=== PATIENT | female | born 1960 | race Caucasian/White ===

== ENCOUNTER 2022-04-18 19:34 | Observation (INO) ==
--- NOTE | 2022-04-18 19:41 | Emergency Department Note ---
Lower Extremity Injury HPI General Chief Complaint: Extremity Injury, Lower Stated Complaint: suspects rt lowr leg Fx Time Seen by Provider: 04/18/22 19:38 Source: patient and EMS Mode of arrival: EMS Limitations: no limitations History of Present Illness HPI Narrative: Narrative: Patient presents ED via EMS with complaints of right ankle pain that occurred shortly prior to arrival. Pain is currently rated 4/10. She received 100 of fentanyl IV in route with EMS. Patient reports that she was stepping down the stairs from her trailer and she slipped twisting her ankle. She denies head trauma, loss of consciousness, knee pain because of sensation of the right lower extremity, loss of motor function right lower extremity. She does report swelling. Patient denies any other alleviating or aggravating factors. Related Data Home Medications Medication Instructions Recorded Confirmed losartan 25 mg tablet 25 mg PO QDAY 06/13/18 02/13/21 Previous Rx's Medication Instructions Recorded atenolol 50 mg tablet 50 mg PO BID #180 tabs 10/18/17 semaglutide 0.25 mg or 0.5 mg (2 0.5 mg (0.4 mL) subcut QWEEK #4.5 10/18/17 mg/1.5 mL) subcutaneous pen mL injector (nChannel) blood-glucose meter (Contour Meter #1 ea 10/19/17 kit) sitagliptin phosphate 100 mg 100 mg PO QPM #90 tabs 02/21/18 tablet (Januvia) ezetimibe 10 mg-simvastatin 40 mg 1 tab PO QPM #90 tabs 03/21/18 tablet (Vytorin) fluoxetine 20 mg capsule 20 mg PO QDAY #60 caps 03/21/18 aspirin 81 mg tablet,delayed 81 mg PO QDAY #90 tabs 04/08/18 release (Adult Aspirin Regimen) pramipexole 0.25 mg tablet 0.75 mg PO QPM #270 tabs 04/08/18 albuterol sulfate 90 mcg/actuation 2 puff inhalation Q6H PRN cough, 04/15/18 aerosol inhaler (ProAir HFA) shortness of breath, wheezing #8.5 grams omeprazole 20 mg capsule,delayed 40 mg PO QDAY #180 caps 04/15/18 release qjeehauebfmzxle-osufgatfaotnonf-ID 10 ml PO BID PRN cold symptoms 06/13/18 2 mg-30 mg-10 mg/5 mL oral syrup #120 mL (Bromfed DM) fluticasone propionate 50 2 spray intranasal QDAY #16 grams 06/13/18 mcg/actuation nasal spray,suspension (Flonase Allergy Relief) benzonatate 100 mg capsule 200 mg PO TID PRN cough #30 caps 06/17/18 (Tessalon Anthony) promethazine 6.25 mg-codeine 10 See Rx Instructions PO .COMPLEX 06/17/18 mg/5 mL syrup PRN cough #120 mL Allergies Allergy/AdvReac Type Severity Reaction Status Date / Time KONG Inhibitors Allergy Unknown Hives Verified 02/13/21 09:49 Amoxicillin Allergy Unknown Rash Verified 02/13/21 09:49 exenatide [From Byetta] Allergy Unknown Unknown Verified 02/13/21 09:49 liraglutide [From Victoza] Allergy Unknown Unknown Verified 02/13/21 09:49 morphine Allergy Unknown Red streaks Verified 02/13/21 09:49 Penicillins Allergy Unknown Rash Verified 02/13/21 09:49 Sulfa (Sulfonamide Allergy Unknown Abdominal Verified 02/13/21 09:49 Antibiotics) Pain tetracycline [Tetracycline] Allergy Unknown Hives Verified 02/13/21 09:49 erythromycin Allergy Unknown Unknown Uncoded 02/13/21 09:49 Review of Systems ROS ROS Narrative: Narrative: All systems ED: reviewed and negative except as stated. PFSH Narrative Patient History Narrative: Narrative: Medical/Surgical/Family History All Active Problems (Updated 04/18/22 @ 22:00 by [place] DO) Ankle fracture (Acute) Maxillary sinusitis (Chronic) Labial lesion (Chronic) BRBPR (bright red blood per rectum) (Chronic) Upper respiratory infection (Chronic) Dysphagia (Chronic) High triglycerides (Chronic) Abdominal pain (Chronic ~08/2011) Bloody stools (Chronic ~08/2011) Diarrhea (Chronic ~08/2011) Ischemic colitis (Chronic ~09/2005) RUQ pain (Chronic) Gastritis (Chronic) Nausea (Chronic) Insomnia (Chronic) History of bronchitis (Chronic) Hyperlipemia (Chronic) Daytime somnolence (Chronic) DM w/o complication type II, uncontrolled (Chronic) Schatzki's ring (Chronic) Mixed hyperlipidemia (Chronic) Major depressive disorder in full remission (Chronic) Myalgia and myositis, unspecified (Chronic) Vitamin D deficiency (Chronic) Morbid obesity (Chronic) Restless leg (Chronic) Hypertension, essential (Chronic) DMII (diabetes mellitus, type 2) (Chronic ~2007) Depression (Chronic ~2012) Anxiety (Chronic ~2012) Acid reflux (Chronic) Medical History Abdominal pain (~08/2011) Acid reflux has had previous EGD; has previously been on omeprazole (symptoms not completely controlled on this) Anxiety (~2012) social anxiety Bloody stools (~08/2011) BRBPR (bright red blood per rectum) Daytime somnolence Depression (~2012) Diarrhea (~08/2011) DM w/o complication type II, uncontrolled DMII (diabetes mellitus, type 2) (~2007) does not tolerate metformin; on combination of Januvia and Ozempic injections Dysmetabolic syndrome Dysphagia Elevated blood pressure reading without diagnosis of hypertension Gallbladder problem Removed Gastritis High triglycerides History of bronchitis Hx of medication noncompliance Hyperlipemia Hypertension, essential takes medication for control, previous hives from ACEI Impaired fasting glucose Insomnia Ischemic colitis (~09/2005) Labial lesion right labial ulceration Major depressive disorder in full remission Maxillary sinusitis Mixed hyperlipidemia Morbid obesity Myalgia and myositis, unspecified Nausea Other recurrent depressive disorders Restless leg takes Mirapex for this, not controlled recently RUQ pain Schatzki's ring Vitamin D deficiency takes supplementation for this Surgical History H/O colonoscopy 10/17/2005; 11/24/2010; 02/10/2021 H/O: hysterectomy Ovaries spared,1998 History of cholecystectomy History of cholecystectomy 2010 History of esophagogastroduodenoscopy (EGD) 09/09/2009; 12/13/2009; 04/28/2010; 11/19/2010; 08/17/2012 ; 02/10/2021 History of mandibular surgery (~2014) Dr. Hernandez; bilateral lower jaw screws/plates History of tonsillectomy and adenoidectomy Family History Mother Arthritis Diabetes Stroke multiple Valvular heart disease Gout Father , 2016, 85 years of age, CHF Bladder cancer Dementia Diabetes Hypertension, essential Heart attack Congestive heart failure Alzheimer disease Colon polyps Brother Diabetes Hypertension, essential Migraines Depression Seasonal allergies Sister Seasonal allergies Social History Alcohol Intake Frequency: does not drink Substance Use: does not use Exam Narrative Narrative: Narrative: General Limitations: no limitations General appearance: Absent in distress Head Head: Present atraumatic and normocephalic Neck Neck: Present normal inspection and full ROM; Absent tenderness Chest Chest: Present normal inspection; Absent tenderness Respiratory Respiratory: Present normal lung sounds bilaterally; Absent respiratory distress Cardiovascular Cardiovascular: Present regular rate and normal rhythm Adbominal Abdominal: Present soft; Absent tenderness Extremities Extremities: Present normal capillary refill Expanded Lower Extremity Knee: Present normal inspection; Absent tenderness Lower leg: Present normal inspection; Absent tenderness Ankle: Present tenderness, swelling and ecchymosis Back Back: Absent L-S tenderness Neurological Neurological: Present alert and oriented X3 Psychiatric Psychiatric: Present normal affect and normal mood Skin Skin: Present warm (WNL) and intact Course Course Course Narrative: Patient was evaluated for right ankle pain status post fall. X-rays were obtained and showed that patient had fractured ankle. Case discussed orthopedic surgeon who recommend surgery. He requested patient be admitted to the hospital service. N.p.o. after midnight. Pain management and patient placed in a Aircast. Plan of care was discussed with patient expressed verbal understanding and agreement. Consultations Consultation #1: Case discussed with on-call orthopedic surgeon, Dr. Strickland, recommends the patient be admitted to the hospital service for surgical correction tomorrow. He placed that patient be placed in Aircast. Time: 20:01 Consultation #2: Case discussed with hospitalist who has agreed to admit the patient. Time: 20:50 Vital Signs Vital signs: Vital Signs Temperature 97.4 F 04/18/22 19:35 Pulse Rate 71 04/18/22 19:35 Respiratory Rate 15 04/18/22 19:35 Pulse Oximetry (%) 96 04/18/22 19:35 Oxygen Delivery Method 04/18/22 19:35 Temperature 97.4 F 04/18/22 19:35 Pulse Rate 70 04/18/22 20:46 Respiratory Rate 15 04/18/22 19:35 Blood Pressure 127/70 04/18/22 20:46 Pulse Oximetry (%) 94 04/18/22 20:46 Oxygen Delivery Method 04/18/22 19:35 MDM MDM Narrative Medical decision making narrative: Narrative: Differential Diagnosis Differential Diagnosis: Ankle fracture, ankle sprain Medical Records Medical records reviewed: Yes I reviewed the patient's medical records. Radiology Data Radiology results reviewed: Yes I reviewed the patient's radiology results. Radiology results narrative: Right ankle x-ray, ankle fracture identified Core Measures AMI Core Measures Followed: Yes Discharge Plan Patient/Caregiver Discharge Instructions Pt seen by STILE RIPSAW OPERATOR/PA only: No Clinical Impression: Ankle fracture Patient Disposition: Xfer As Outpt/Obs ([facility]) Condition: Good Follow up with: Yaritza Garcia MD [Primary Care Provider] - Prescriptions: No Action sitagliptin phosphate [Januvia] 100 mg tablet 100 mg PO QPM Qty: 90 0RF ezetimibe-simvastatin [Vytorin 10-40] 10-40 mg tablet 1 tab PO QPM Qty: 90 2RF fluoxetine 20 mg capsule 20 mg PO QDAY Qty: 60 5RF albuterol sulfate [ProAir HFA] 90 mcg/actuation HFA aerosol inhaler 2 puff INHALATION Q6H PRN (Reason: cough, shortness of breath, wheezing) Qty: 8.5 5RF Rx Instructions: administer with spacer omeprazole 20 mg capsule,delayed release(DR/EC) 40 mg PO QDAY Qty: 180 5RF atenolol 50 mg tablet 50 mg PO BID Qty: 180 4RF semaglutide [Ozempic] 0.25 mg/0.2 mL (2 mg/1.5 mL) pen injector 0.5 mg SUB-Q QWEEK Qty: 4.5 4RF Rx Instructions: inject into upper arm, anterior thigh or abdomen; rotate sites (DME) blood-glucose meter [Contour Meter] kit See Dose Instructions .ROUTE .MEDSUPPLY Qty: 1 0RF Dose Instruction: As directed Rx Instructions: As directed aspirin [Adult Aspirin Regimen] 81 mg tablet,delayed release (DR/EC) 81 mg PO QDAY Qty: 90 4RF pramipexole 0.25 mg tablet 0.75 mg PO QPM Qty: 270 4RF losartan 25 mg tablet 25 mg PO QDAY fluticasone propionate [Flonase Allergy Relief] 50 mcg/actuation spray,suspension 2 spray INTRANASAL QDAY Qty: 16 0RF Rx Instructions: administer into each nostril ojfbwvtqimuzhmr-[id number] [Bromfed DM] 2-30-10 mg/5 mL syrup 10 ml PO BID PRN (Reason: cold symptoms) Qty: 120 0RF benzonatate [Tessalon Perles] 100 mg capsule 200 mg PO TID PRN (Reason: cough) Qty: 30 0RF promethazine-codeine 6.25-10 mg/5 mL syrup See Rx Instructions PO .COMPLEX PRN (Reason: cough) Qty: 120 0RF Dose Instruction: 1-2 tsp PO QHS PRN; Rx Instructions: 1-2 tsp PO QHS PRN;
[2022-04-18] MEDS ORDERED: diphenhydrAMINE 50 MG/ML VIAL IV ONE (20:14)
[2022-04-18] MEDS ORDERED: morphine 2 MG/ML VIAL IV ONE (20:14)
[2022-04-18] MEDS ORDERED: ALBUTEROL SULFATE 60 PUFF INHALER INH PRN (21:05)
[2022-04-18] MEDS ORDERED: MAGNESIUM HYDROXIDE 30 ML ORAL.SUSP PO PRN (21:08)
[2022-04-18] MEDS ORDERED: PROMETHAZINE 25 MG/ML VIAL IV PRN (21:08)
[2022-04-18] MEDS ORDERED: oxyCODONE HCL 5 MG TABLET PO PRN (21:08)
[2022-04-18] MEDS ORDERED: ONDANSETRON 4 MG ODT TABLET SL PRN (21:08)
[2022-04-18] MEDS ORDERED: ZOLPIDEM 5 MG TABLET PO PRN (21:08)
[2022-04-18] MEDS ORDERED: ONDANSETRON 4 MG/2 ML VIAL IV PRN (21:08)
[2022-04-18] MEDS ORDERED: ALBUTEROL SULFATE 2.5 MG/3 ML NEBULIZER NEB PRN (21:08)
[2022-04-18] MEDS ORDERED: ENOXAPARIN 40 MG/0.4 ML SYRINGE SQ ONE (21:10)
[2022-04-18] MEDS ORDERED: DEXTROSE 50% 50 ML VIAL IV PRN (21:13)
[2022-04-18] MEDS ORDERED: DEXTROSE 31 GM ORAL.SUSP PO PRN (21:13)
--- NOTE | 2022-04-18 21:17 | Internal Med History&Physical ---
HPI History of Present Illness Patient information: Note initiated : 04/18/22 at 9:15 pm Patient: Gayle Gomez a 61 y/o F admitted on for fall and acute traumatic unstable right Ankle fracure Chief Complaint: Fall with right ankle pain and fracture History of present illness: Ms. Gomez is a 61 year old female with past medical history significant for diabetes, hyperlipidemia, hypertension and morbid obesity with BMI 50 presented to emergency room with complaint of right ankle pain. Patient had a mechanical fall due to IC for. She felt down without injuring any other part of her body. She had severe pain in the right ankle and bruising. In the emergency room x- ray right ankle showed acute unstable right ankle/fibula fracture. Dr. Strickland orthopedic surgeon were consulted and he plan to perform ORIF tomorrow morning because patient's fracture is unstable. Patient did not lose consciousness. She has no other injury or pain. She complains of 5/10 pain in the right ankle. She denies nausea vomiting chest pain shortness of breath dizziness, fever, chills, syncope, abdominal pain. Review of Systems All systems: reviewed and no additional remarkable complaints except as stated Review of systems: Except as documented all systems reviewed and negative PFSH PFSH All Active Problems Maxillary sinusitis (Chronic) Labial lesion (Chronic) BRBPR (bright red blood per rectum) (Chronic) Upper respiratory infection (Chronic) Dysphagia (Chronic) High triglycerides (Chronic) Abdominal pain (Chronic ~08/2011) Bloody stools (Chronic ~08/2011) Diarrhea (Chronic ~08/2011) Ischemic colitis (Chronic ~09/2005) RUQ pain (Chronic) Gastritis (Chronic) Nausea (Chronic) Insomnia (Chronic) History of bronchitis (Chronic) Hyperlipemia (Chronic) Daytime somnolence (Chronic) DM w/o complication type II, uncontrolled (Chronic) Schatzki's ring (Chronic) Mixed hyperlipidemia (Chronic) Major depressive disorder in full remission (Chronic) Myalgia and myositis, unspecified (Chronic) Vitamin D deficiency (Chronic) Morbid obesity (Chronic) Restless leg (Chronic) Hypertension, essential (Chronic) DMII (diabetes mellitus, type 2) (Chronic ~2007) Depression (Chronic ~2012) Anxiety (Chronic ~2012) Acid reflux (Chronic) Medical History Abdominal pain (~08/2011) Acid reflux has had previous EGD; has previously been on omeprazole (symptoms not completely controlled on this) Anxiety (~2012) social anxiety Bloody stools (~08/2011) BRBPR (bright red blood per rectum) Daytime somnolence Depression (~2012) Diarrhea (~08/2011) DM w/o complication type II, uncontrolled DMII (diabetes mellitus, type 2) (~2007) does not tolerate metformin; on combination of Januvia and Ozempic injections Dysmetabolic syndrome Dysphagia Elevated blood pressure reading without diagnosis of hypertension Gallbladder problem Removed Gastritis High triglycerides History of bronchitis Hx of medication noncompliance Hyperlipemia Hypertension, essential takes medication for control, previous hives from ACEI Impaired fasting glucose Insomnia Ischemic colitis (~09/2005) Labial lesion right labial ulceration Major depressive disorder in full remission Maxillary sinusitis Mixed hyperlipidemia Morbid obesity Myalgia and myositis, unspecified Nausea Other recurrent depressive disorders Restless leg takes Mirapex for this, not controlled recently RUQ pain Schatzki's ring Vitamin D deficiency takes supplementation for this Surgical History H/O colonoscopy 10/17/2005; 11/24/2010; 02/10/2021 H/O: hysterectomy Ovaries spared,1998 History of cholecystectomy History of cholecystectomy 2010 History of esophagogastroduodenoscopy (EGD) 09/09/2009; 12/13/2009; 04/28/2010; 11/19/2010; 08/17/2012 ; 02/10/2021 History of mandibular surgery (~2014) Dr. 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[employer] pets and animals: Yes pets and animals: dog(s) sexually active: No well-balanced diet: rarely or never physical activity: none smoking status: Never smoker alcohol intake frequency: does not drink substance use type: does not use santana/zoroastrianism: None seatbelt use: always working smoke detector in home: Yes victim of physical abuse: No victim of emotional abuse: No victim of sexual abuse: No MEDS/ALLERGIES Home Medications and Allergies Home Medications Medication Instructions Recorded Confirmed Type atenolol 50 mg tablet 50 mg PO BID #180 tabs 10/18/17 02/13/21 Rx semaglutide 0.25 mg or 0.5 mg (2 0.5 mg (0.4 mL) subcut QWEEK #4.5 10/18/17 02/13/21 Rx mg/1.5 mL) subcutaneous pen mL injector (WeVue) blood-glucose meter (Contour Meter #1 ea 10/19/17 02/13/21 Rx kit) sitagliptin phosphate 100 mg 100 mg PO QPM #90 tabs 02/21/18 02/13/21 Rx tablet (Januvia) ezetimibe 10 mg-simvastatin 40 mg 1 tab PO QPM #90 tabs 03/21/18 02/13/21 Rx tablet (Vytorin) fluoxetine 20 mg capsule 20 mg PO QDAY #60 caps 03/21/18 02/13/21 Rx aspirin 81 mg tablet,delayed 81 mg PO QDAY #90 tabs 04/08/18 02/13/21 Rx release (Adult Aspirin Regimen) pramipexole 0.25 mg tablet 0.75 mg PO QPM #270 tabs 04/08/18 02/13/21 Rx albuterol sulfate 90 mcg/actuation 2 puff inhalation Q6H PRN cough, 04/15/18 02/13/21 Rx aerosol inhaler (ProAir HFA) shortness of breath, wheezing #8.5 grams omeprazole 20 mg capsule,delayed 40 mg PO QDAY #180 caps 04/15/18 02/13/21 Rx release hbyeasobopfumom-rvybjypvputqfpv-OL 10 ml PO BID PRN cold symptoms 06/13/18 02/13/21 Rx 2 mg-30 mg-10 mg/5 mL oral syrup #120 mL (Bromfed DM) fluticasone propionate 50 2 spray intranasal QDAY #16 grams 06/13/18 02/13/21 Rx mcg/actuation nasal spray,suspension (Flonase Allergy Relief) losartan 25 mg tablet 25 mg PO QDAY 06/13/18 02/13/21 History benzonatate 100 mg capsule 200 mg PO TID PRN cough #30 caps 06/17/18 02/13/21 Rx (Tesshay Cruz) promethazine 6.25 mg-codeine 10 See Rx Instructions PO .COMPLEX 06/17/18 02/13/21 Rx mg/5 mL syrup PRN cough #120 mL Allergies Allergy/AdvReac Type Severity Reaction Status Date / Time KONG Inhibitors Allergy Unknown Hives Verified 02/13/21 09:49 Amoxicillin Allergy Unknown Rash Verified 02/13/21 09:49 exenatide [From Byetta] Allergy Unknown Unknown Verified 02/13/21 09:49 liraglutide [From Victoza] Allergy Unknown Unknown Verified 02/13/21 09:49 morphine Allergy Unknown Red streaks Verified 02/13/21 09:49 Penicillins Allergy Unknown Rash Verified 02/13/21 09:49 Sulfa (Sulfonamide Allergy Unknown Abdominal Verified 02/13/21 09:49 Antibiotics) Pain tetracycline [Tetracycline] Allergy Unknown Hives Verified 02/13/21 09:49 erythromycin Allergy Unknown Unknown Uncoded 02/13/21 09:49 EXAM Constitutional Vitals: Temp Pulse Resp BP Pulse Ox O2 Del Method 97.4 F 70 15 127/70 94 04/18/22 19:35 04/18/22 20:46 04/18/22 19:35 04/18/22 20:46 04/18/22 20:46 04/18/22 19:35 General: Well-developed, malnourished morbidly obese pleasant female with BMI 50 in no distress HEENT: Atraumatic, normocephalic.PERRLA, moist mucous membrane. Anicteric sclera Chest: No point tenderness.No point tenderness. Lungs: Clear to auscultation bilaterally. No rhonchi rales or crackles. No wheezing. No use of accessory muscle respiration. Cardiovascular: Regular rate and rhythm. S1 + S2, no murmur gallop rub. No peripheral edema. No JVD Extremities: Bruise swelling right ankle with small ulcer and dried blood. Decreased range of motion due to severe pain. Left lower extremity normal GI: Abdomen soft, nontender, positive bowel sounds. No hepatosplenomegaly. No rebound tenderness. No CVA tenderness. Dai sign is negative : No Jacobo catheter. No bladder distention BOARD TURNER: Awake alert oriented x3. Cranial nerves II through XII 12 grossly intact. Motor, sensory intact. DTR 2+ upper lower extremity: Symmetric Skin:Dry. No rash. Lymph: No lymphadenopathy Psychiatric: Normal mood and affect DATA Impressions Impressions: X-ray right ankle: Self interpretation. Acute right fibula fracture, displaced A/P Narrative A/P Narrative: 61 years old pleasant female with diabetes, hypertension, hyperlipidemia, no known history of heart disease and morbid obesity with BMI 50 admitted with following problem list: #Acute traumatic right ankle/fibula fracture. Displaced and unstable -Currently on Aircast. -Pain control. -Dr. Strickland to perform ORIF in the morning. #Preop risk stratification -Revised cardiac risk index is one-point with 6% 30-day risk of , [place] or cardiac arrest. -Patient has no chest pain, shortness of breath, PND, orthopnea. No sign or symptom of acute coronary syndrome, unstable angina, decompensated heart failure, stroke. -Check EKG and if there is no acute finding I recommend to proceed with surgery with no further testing # DM II -Hold oral hypoglycemic agents since patient will be NPO. Sliding scale insulin for now # Elevated Lactic Acid. - No Sepsis. Repeat in am. # HTN - Resume home Atenolol # HLP - Cont home Statin #Restless leg syndrome - Cont home Mirapex #Morbid obesity with BMI 50 DVT PPX: Lovenox 40mg x1 now. Postop due to patient's morbid obesity consider aspirin 325 mg daily or twice daily. Will discuss with orthopedic surgeon Code Status : Full code Disposition: Observation Plan of care discussed with patient and family member as well as RN Time Spent With Patient Time: Total time spent is greater than 50% in coordination of care (as documented) at patient's floor/unit and/or counseling patient:
[2022-04-18] MEDS: HYDROmorphone 1 MG/ML SYRINGE IV PRN (23:05)
[2022-04-18] MEDS: ACETAMINOPHEN 325 MG TABLET PO PRN (23:20)
[2022-04-18] MEDS ORDERED: oxyCODONE HCL 5 MG TABLET PO ONE (23:26)
[2022-04-19] MEDS: 0.9 % SODIUM CHLORIDE 10 ML SYRINGE IV SCH ×5 (01:01→22:48)
[2022-04-19] MEDS: LACTATED RINGERS 1,000 ML IV SCH ×3 (01:01→17:19)
[2022-04-19] MEDS: HYDROmorphone 1 MG/ML SYRINGE IV PRN ×7 (01:02→21:23)
--- NOTE | 2022-04-19 03:17 | XRay Report ---
CLINICAL INFORMATION: Trauma COMPARISON: None. FINDINGS: A spiral fracture of the distal fibula diaphysis extends to the fused epiphyseal plate. The proximal fragment is displaced 6 mm anteriorly and 3 mm medially. Marked widening medial ankle mortise is compatible with deltoid ligament disruption. Moderate effusion noted. Diffuse soft tissue swelling noted. IMPRESSION: Mildly displaced spiral fracture distal fibular diaphysis with extension to the epiphyseal plate. (Dyer B) Marked widening of the medial ankle mortise compatible deltoid ligament disruption. Interpreted and Authenticated by: Trino Thorpe 04/19/22
[2022-04-19 08:08] LABS: Blood Urea Nitrogen 13 mg/dL (6-20); Calcium 8.4 mg/dL (8.6-10.4); Carbon Dioxide 24 mmol/L (22-30); Chloride 103 mmol/L (96-108); Glomerular Filtration Rate 80; Glucose 126 mg/dL (70-105)
[2022-04-19] MEDS: INSULIN LISPRO 1 UNIT/0.01 ML UNIT SQ SCH ×4 (08:23→20:34)
[2022-04-19] MEDS ORDERED: LOSARTAN 25 MG TABLET PO SCH (09:00)
[2022-04-19] MEDS: ATENOLOL 50 MG TABLET PO SCH ×2 (09:50→20:24)
[2022-04-19] MEDS: FLUTICASONE PROPIONATE SPRAY.NAS NS SCH (09:51)
[2022-04-19] MEDS: OMEPRAZOLE 20 MG CAPSULE PO SCH (09:51)
[2022-04-19] MEDS: DOCUSATE SODIUM 100 MG CAPSULE PO SCH ×2 (09:51→20:23)
[2022-04-19] MEDS: FLUoxetine HCL 20 MG CAPSULE PO SCH (09:51)
[2022-04-19] MEDS: oxyCODONE HCL 5 MG TABLET PO PRN ×3 (12:17→21:44)
[2022-04-19] MEDS ORDERED: ceFAZolin 3 GM in DEXTROSE 5% IN WATER 50 ML IV SCH (13:15)
[2022-04-19] MEDS ORDERED: ONDANSETRON 4 MG/2 ML VIAL IV PRN ×2 (14:01→14:45)
[2022-04-19] MEDS ORDERED: HYDROcodone/APAP 10/325MG TABLET PO PRN (14:01)
[2022-04-19] MEDS ORDERED: TRANEXAMIC ACID 1,000 MG/10 ML VIAL IV ONE (14:01)
--- NOTE | 2022-04-19 14:13 | Brief Operative Note ---
Brief Operative Note Date of procedure: 04/19/22 Pre-op diagnosis: right ankle fx Post-op diagnosis: same Procedure: right ankle orif with syndesmosis screwss Grafts/Implants: Yes Anesthesia: GETA Findings: above Complications: none Surgeon: Speedy Polk Burlapper: Fritz Barba Estimated blood loss (cc): 20 Tourniquet Time (Minutes): 40 Specimens Removed/Pathology: none sent Condition: stable Disposition: PACU
[2022-04-19] MEDS ORDERED: DEXAMETHASONE 10 MG/ML VIAL ONE (14:15)
[2022-04-19] MEDS ORDERED: MAGNESIUM SULFATE 4 GM/100 ML BAG IV ONE (14:15)
[2022-04-19] MEDS ORDERED: fentaNYL 100 MCG/2 ML VIAL IV ONE (14:15)
[2022-04-19] MEDS ORDERED: ONDANSETRON 4 MG/2 ML VIAL ONE (14:15)
[2022-04-19] MEDS ORDERED: PROPOFOL 200 MG/20 ML VIAL IV ONE (14:15)
[2022-04-19] MEDS ORDERED: KETAMINE 50 MG/ML Syringe (ANEST) IV ONE (14:15)
[2022-04-19] MEDS ORDERED: LIDOCAINE HCL/PF 100 MG/5 ML SYRINGE IV ONE (14:15)
[2022-04-19] MEDS ORDERED: diphenhydrAMINE 50 MG/ML VIAL IV PRN (14:45)
[2022-04-19] MEDS ORDERED: NALOXONE HCL 0.4 MG/ML VIAL IV PRN (14:45)
[2022-04-19] MEDS ORDERED: LACTATED RINGERS 1,000 ML IV SCH (14:45)
[2022-04-19] MEDS ORDERED: LACTATED RINGERS 250 ML IV PRN (14:45)
[2022-04-19] MEDS ORDERED: KETOROLAC 30 MG/ML VIAL IV PRN ×2 (14:45→21:32)
[2022-04-19] MEDS ORDERED: IPRATROPIUM/ALBUTEROL 3 ML AMPUL.NEB NEB PRN (14:45)
[2022-04-19] MEDS ORDERED: PROMETHAZINE 25 MG/ML VIAL IV PRN (14:45)
[2022-04-19] MEDS ORDERED: ACETAMINOPHEN 1,000 MG/100 ML BAG IV ONE (14:45)
[2022-04-19] MEDS ORDERED: MEPERIDINE 25 MG/ML VIAL IV PRN (14:45)
[2022-04-19] MEDS ORDERED: DIAZEPAM 10 MG/2 ML SYRINGE IV ONE (15:25)
[2022-04-19] MEDS: fentaNYL 100 MCG/2 ML VIAL IV PRN ×3 (15:28→15:58)
[2022-04-19] MEDS: rOPINIRole 1 MG TABLET PO SCH ×2 (17:15→20:25)
--- NOTE | 2022-04-19 18:01 | XRay Report ---
CLINICAL INFORMATION: Follow-up Dyer B fracture and deltoid ligament disruption COMPARISON: Preoperative films 04/18/2022 FINDINGS: The Dyer B spiral fracture distal fibula has been reduced to anatomic alignment and transfixed by lateral plate and screws. Two screws extend through the syndesmosis into the tibia. The ankle mortise now appears congruent. Small nondisplaced avulsion fracture through the posterior cortex of the posterior malleolus noted. Diffuse soft tissue swelling appreciated. IMPRESSION: ORIF Dyer B spiral fracture distal fibula now anatomically aligned Interpreted and Authenticated by: Trino Thorpe 04/19/22
[2022-04-19 20:21] LABS: Basophils # (Auto) 0.01 K/mcL (0.00-0.30); Basophils % (Auto) 0.1 % (0.0-2.0); Eosinophils # (Auto) 0 K/mcL (0.00-0.70); Eosinophils % (Auto) 0 % (0.0-7.0); Hematocrit 40.7 % (34.1-44.9); Hemoglobin 12.4 g/dL (11.2-15.7); Lymphocytes % (Auto) 7.7 % (15.5-49.0); Mean Cell Volume 90.4 fL (80.0-100.0); Mean Corpuscular HGB Conc 30.5 g/dL (31.0-36.0); Mean Platelet Volume 10.2 fL (8.8-12.5); Monocytes # (Auto) 0.12 K/mcL (0.10-0.90); Monocytes % (Auto) 1.3 % (1.0-12.0); Neutrophils % (Auto) 90.5 % (38.0-78.0); Platelet Count 217 K/mcL (140-440); Red Cell Distribution Width 14.8 % (11.5-14.5); WBC 9.1 K/mcL (4.5-11.0)
[2022-04-19] MEDS: VENLAFAXINE 75 MG TABLET PO SCH (20:24)
[2022-04-19] MEDS ORDERED: SIMVASTATIN 40 MG TABLET PO SCH (21:00)
[2022-04-19] MEDS ORDERED: PRAMIPEXOLE 0.25 MG TABLET PO SCH (21:00)
[2022-04-19] MEDS ORDERED: EZETIMIBE 10 MG TABLET PO SCH (21:00)
[2022-04-19] MEDS ORDERED: SENNOSIDES 1 TABLET PO SCH (21:00)
[2022-04-19] MEDS ORDERED: KETOROLAC 30 MG/ML VIAL ONE (21:38)
--- NOTE | 2022-04-19 22:04 | Internal Med Progress Note ---
SUBJECTIVE Subjective Patient information: Note initiated : 04/19/22 at 9:58 pm Patient: Gayle Gomez 61 y/o F admitted on 04/18/22 for suspects rt lowr leg Fx. Chief Complaint: Fall with right ankle fracture Interval history: Patient is a status post ORIF today by Dr. Strickland. She is complaining of pain in the right ankle 80/10 and crying. No nausea vomiting chest pain shortness of breath orthopnea Pertinent ROS: Except as documented all systems reviewed and negative Constitutional Vitals: Vital Signs Temp Pulse Resp BP Pulse Ox O2 Del Method O2 Flow Rate 98.7 F 64 14 126/76 97 2.5 04/19/22 16:16 04/19/22 18:31 04/19/22 18:31 04/19/22 18:31 04/19/22 18:31 04/19/22 18:31 04/19/22 18:31 Period Temp Pulse Resp BP Sys/Webb Pulse Ox O2 Del Method O2 Flow Rate Last 24 Hr 97.5 F-98.7 F 60-80 12-21 90-133/57-83 92-100 Nasal Cannula- Simple Mask 1-6 Intake and Output 04/19/22 04/19/22 04/20/22 11:59 19:59 03:59 Intake Total 2250 Output Total 550 6 Balance -550 2244 Intake & Output: Intake & Output 04/19/22 04/19/22 04/20/22 11:59 19:59 03:59 Intake Total 2250 Output Total 550 6 Balance -550 2244 Intake: IV 1150 Lactated Ringers 1,000 ml @ 84 1000 mls/hr IV .[id number] EZEQUIEL Rx#: [id number] Ancef 3 gm In Dextrose 5% in 50 Water 50 ml @ 100 mls/hr IV PREOP EZEQUIEL Rx#:[id number] IV - Manual Only 1100 Output: Void Amount 550 # of times incontinent of urine 1 Estimated Blood Loss 5 Other: Urine Appearance Clear Clear Straight Clear Urine Color Yellow Yellow Straight Yellow general: Awake alert oriented x3. In obvious pain. Patient is crying HEENT: PERRLA, moist mucous membrane. Anicteric sclera Lungs: Clear to auscultation bilaterally. No crackles rhonchi or rales. Cardiovascular: Regular rate and rhythm. S1 + S2, no murmur gallop rub. No JVD GI: Abdomen soft, nontender, positive bowel sounds. No hepatosplenomegaly. No rebound tenderness. No CVA tenderness Extremities: Status post ORIF right ankle. In cast. 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 Cranial nerves II through XII 12 grossly intact. Psychiatric: Normal mood and affect OBJ DATA Labs CBC & Chem 7: 04/19/22 19:37 04/19/22 05:56 Labs: Abnormal Lab Results 04/19/22 04/19/22 19:37 05:56 MCHC 30.5 L RDW 14.8 H Neut % (Auto) 90.5 H Lymph % (Auto) 7.7 L Lymph # (Auto) 0.70 L Absolute Neutrophils 8.19 H Glucose 126 H Calcium 8.4 L Meds: Medications Acetaminophen (Acetaminophen 325 Mg Tablet) 650 mg PO Q6HP PRN; Protocol PRN Reason: Per Pain Protocol/Fever > 101 Last Admin: 04/18/22 23:20 Dose: 650 mg Hydrocodone Bitart/Acetaminophen (Hydrocodone/Apap 10/325mg Tablet) 1 - 2 tab PO Q4HP PRN; Protocol PRN Reason: Per Pain Protocol Albuterol Sulfate (Albuterol Sulfate 60 Puff Inhaler) 2 puff INH Q6H PRN PRN Reason: cough, shortness of breath, wheezing Albuterol Sulfate (Albuterol Sulfate 2.5 Mg/3 Ml Nebulizer) 2.5 mg NEB Q2HP PRN PRN Reason: Shortness Of Breath Atenolol (Atenolol 50 Mg Tablet) 50 mg PO BID [facility] Last Admin: 04/19/22 20:24 Dose: 50 mg Atorvastatin Calcium (Atorvastatin 40 Mg Tablet) 40 mg PO QDAY [facility] Dextrose (Dextrose 50% 50 Ml Vial) 0 ml IV UD PRN PRN Reason: Per Sliding Scale Diagnostic Test (Pha) (Accu-Chek 1 Each Strip) 1 each FS ACHS [facility] Last Admin: 04/19/22 20:28 Dose: 1 each Docusate Sodium (Docusate Sodium 100 Mg Capsule) 100 mg PO BID [facility] Last Admin: 04/19/22 20:23 Dose: 100 mg Ezetimibe (Ezetimibe 10 Mg Tablet) 10 mg PO QPM [facility] Last Admin: 04/19/22 20:24 Dose: 10 mg Ergocalciferol (Ergocalciferol (Vitamin D2) 50,000 Unit Capsule) 50,000 unit PO Sa [facility] Fluoxetine HCl (Fluoxetine Hcl 20 Mg Capsule) 20 mg PO QDAY [facility] Last Admin: 04/19/22 09:51 Dose: Not Given Fluticasone Propionate (Fluticasone Propionate [place]) 2 spray NS QDAY [facility] Last Admin: 04/19/22 09:51 Dose: Not Given Glucose (Dextrose 31 Gm Oral.Susp) 15 gm PO PRN PRN PRN Reason: Hypoglycemia Hydromorphone HCl (Hydromorphone 1 Mg/Ml Syringe) 0.5 - 2 mg IV Q2HP PRN; Protocol PRN Reason: Per Pain Protocol Last Admin: 04/19/22 21:23 Dose: 1 mg Lactated Ringer's (Lactated Ringers) 1,000 mls @ 50 mls/hr IV .Q20H [facility] Last Admin: 04/19/22 17:19 Dose: 50 mls/hr Insulin Human Lispro (Insulin Lispro 1 Unit/0.01 Ml Unit) 0 unit SQ ACHS [facility]; Protocol Last Admin: 04/19/22 20:34 Dose: 6 units Ketorolac Tromethamine (Ketorolac 30 Mg/Ml Vial) 30 mg IV Q6HP PRN PRN Reason: Per Pain Protocol Stop: 04/21/22 21:33 Last Admin: 04/19/22 21:45 Dose: 30 mg Losartan Potassium (Losartan 50 Mg Tablet) 50 mg PO DAILY EZEQU[facility] Magnesium Hydroxide (Magnesium Hydroxide 30 Ml Oral.Susp) 30 ml PO DAILYP PRN PRN Reason: Constipation Omeprazole (Omeprazole 20 Mg Capsule) 40 mg PO QDAY [facility] Last Admin: 04/19/22 09:51 Dose: Not Given Ondansetron HCl (Ondansetron 4 Mg Odt Tablet) 4 mg SL Q6HP PRN PRN Reason: Nausea And Vomiting Ondansetron HCl (Ondansetron 4 Mg/2 Ml Vial) 4 mg IV Q6HP PRN; Protocol PRN Reason: Nausea And Vomiting Oxycodone HCl (Oxycodone Hcl 5 Mg Tablet) 5 mg PO Q4HP PRN; Protocol PRN Reason: Per Pain Protocol Last Admin: 04/19/22 21:44 Dose: 5 mg Pramipexole Dihydrochloride (Pramipexole 0.25 Mg Tablet) 0.75 mg PO QPM [facility] Last Admin: 04/19/22 20:24 Dose: 0.75 mg Promethazine HCl (Promethazine 25 Mg/Ml Vial) 12.5 mg IV Q6HP PRN PRN Reason: Nausea And Vomiting Ropinirole HCl (Ropinirole 1 Mg Tablet) 3 mg PO BID [facility] Last Admin: 04/19/22 20:25 Dose: Not Given Senna (Sennosides 1 Tablet) 2 tab PO HS [facility] Last Admin: 04/19/22 20:23 Dose: 2 tab Sodium Chloride (0.9 % Sodium Chloride 10 Ml Syringe) 10 ml IV Q8 [facility] Last Admin: 04/19/22 21:27 Dose: Not Given Sodium Chloride (0.9 % Sodium Chloride 10 Ml Syringe) 10 ml IV Q8 [facility] Venlafaxine HCl (Venlafaxine 75 Mg Tablet) 75 mg PO BID [facility] Last Admin: 04/19/22 20:24 Dose: 75 mg Zolpidem Tartrate (Zolpidem 5 Mg Tablet) 5 mg PO HSP PRN PRN Reason: Insomnia A/P Narrative A/P Narrative: 61 years old pleasant female with diabetes, hypertension, hyperlipidemia, no known history of heart disease and morbid obesity with BMI 50 admitted with following problem list: #Acute traumatic right ankle/fibula fracture. Displaced and unstable -S/p Right ankle ORIF with syndesmosis screws 04/19/22 by . - Cont Post op Care. Pain control. #Preop risk stratification -Revised cardiac risk index is one-point with 6% 30-day risk of , [place] or cardiac arrest. -Patient has no chest pain, shortness of breath, PND, orthopnea. No sign or symptom of acute coronary syndrome, unstable angina, decompensated heart failure, stroke. -Unremarkable EKG . Recommended to proceed with surgery with no further testing # DM II -Resume home oral meds in the morning # Elevated Lactic Acid. - No Sepsis. # HTN -Continue home Atenolol # HLP - Cont home Statin #Restless leg syndrome - Cont home Mirapex #Morbid obesity with BMI 50 DVT PPX: Lovenox 40mg bid from tomorrow morning. Postop due to patient's morbid obesity consider aspirin 325 mg daily or twice daily. Will discuss with orthopedic surgeon Code Status : Full code Disposition: Observation Plan of care discussed with patient and family member as well as RN Time Spent With Patient Time: Total time spent is greater than 50% in coordination of care (as documented) at patient's floor/unit and/or counseling patient: Total time spent with greater than 50% in coordination of care (as documented) at patient's floor/unit and/or counseling patient:: 25 - 35 minutes QUALITY Stroke Symptom Onset Unknown: No
[2022-04-20] MEDS: 0.9 % SODIUM CHLORIDE 10 ML SYRINGE IV SCH (05:54)
[2022-04-20] MEDS: INSULIN LISPRO 1 UNIT/0.01 ML UNIT SQ SCH (07:33)
[2022-04-20] MEDS: ACETAMINOPHEN 325 MG TABLET PO PRN (07:34)
--- NOTE | 2022-04-20 07:58 | Consultation ---
DATE OF CONSULTATION: 04/18/2022 DATE OF CONSULTATION: 04/18/2022 HISTORY OF PRESENT ILLNESS: A very pleasant female who sustained a same-level fall with twisting of the ankle, with a fracture dislocation. She was seen in the Emergency Room where she was appropriately diagnosed with an ankle fracture dislocation. Shortly after the fall, her pain was controlled with fentanyl and she rated her pain about 4/10. She was brought in by EMS. She does note that she was unable to bear weight shortly after the fall. PAST MEDICAL HISTORY: Significant for hypertension, labial lesion, chronic gastritis has been a problem in the past, type 2 diabetes, depression, anxiety, acid reflux, hyperlipidemia, chronic diarrhea and abdominal pain has been a problem. MEDICATIONS: Atenolol 50 mg #1 p.o. b.i.d. Semaglutide 0.25 mg to 5.5 mg subcutaneous pin injection, which is Ozempic for her diabetes; she monitors glucose. Aspirin with delayed release #1 tablet daily. Fluoxetine 20 mg daily. Albuterol inhaler. Omeprazole. Promethazine p.r.n. for nausea. ALLERGIES: She is allergic to several medications without shortness of breath; these are usually side effects. AMOXICILLIN causes a rash, KONG INHIBITORS hives, PENICILLIN rash, MORPHINE red streaks, SULFA abdominal pain, TETRACYCLINE hives, ERYTHROMYCIN she does not know, but none of which have caused shortness of breath or difficulty with breathing. They are mostly side effects. REVIEW OF SYSTEMS: Negative for chest pain or shortness of breath today. PAST SURGICAL HISTORY: Maxillary sinus surgery, colonoscopy, hysterectomy, cholecystectomy x2, esophageal duodenoscopy, mandibular surgery. FAMILY HISTORY: Mother that had diabetes and a stroke. PHYSICAL EXAMINATION: GENERAL: Very pleasant female who is alert and cooperative, in some pain, but no severe pain. She has no anxiety, no distress. No difficulty with breathing. HEAD: Atraumatic. Extraocular movements are intact. Tongue is midline. NECK: Supple, nontender. CHEST: She has no tenderness around her chest. LUNGS: Clear bilaterally. CARDIOVASCULAR: Regular rate and rhythm. No murmurs, rubs or gallops. ABDOMEN: Soft. EXTREMITIES: Demonstrate a boot on the right lower extremity with pink perfusion into the toes. She is obviously unable to move her ankle because of pain. Her knee is stable. The hip is stable, no pain with motion. BACK: She has some lower back tenderness. NEUROLOGIC: She is intact and she is alert and oriented x3. Mood and affect appropriate. PSYCHIATRIC: She is upbeat and seems to be appropriate. SKIN: No lesions or rashes. RADIOLOGIC STUDIES: X-rays show right ankle fracture dislocation with a Dyer C fracture, widening of the medial mortise with widening of over 10 mm medially. ASSESSMENT AND PLAN: Right ankle fracture dislocation with a Dyer C fracture. Treatment plan is open reduction internal fixation of the ankle with syndesmosis screws. She was n.p.o. over the night. I offered her something to drink, but she declined. She agrees to proceed with surgery, understanding the protocol afterwards, which would be limited weightbearing, elevating the leg frequently with short periods of time up and to control swelling. She came in a brace, but rarely and she agrees to proceed. She notes that the antibiotics do not cause shortness of breath, noted above. RBH:jaime Job ID: [id number] Doc ID: [id number] Speedy Polk MD
[2022-04-20] MEDS: OMEPRAZOLE 20 MG CAPSULE PO SCH (08:12)
[2022-04-20] MEDS: VENLAFAXINE 75 MG TABLET PO SCH (08:12)
[2022-04-20] MEDS: rOPINIRole 1 MG TABLET PO SCH (08:13)
[2022-04-20] MEDS: DOCUSATE SODIUM 100 MG CAPSULE PO SCH (08:13)
[2022-04-20] MEDS: ATENOLOL 50 MG TABLET PO SCH (08:13)
[2022-04-20] MEDS: FLUoxetine HCL 20 MG CAPSULE PO SCH (08:13)
--- NOTE | 2022-04-20 08:20 | Operative Note ---
DATE OF OPERATION: 04/19/2022 PREOPERATIVE DIAGNOSIS: Right ankle fracture dislocation. POSTOPERATIVE DIAGNOSIS: Right ankle fracture dislocation. PROCEDURE: Right ankle open reduction and internal fixation of the fibula with syndesmosis screws. SURGEON: Speedy Polk M.D. JIG BORE OPERATOR: Fritz Barba PA-C. The expertise and technical skill of this provider were required throughout the case. The PA assisted with preoperative coordination, intraoperative retraction, wound closure, and dressing and splint application, as well as postoperative documentation and care coordination. ANESTHESIA: General LMA anesthesia. IMPLANTS: This was an anatomic fibular plate from [employer] that was implanted with a number of screws per nurse's note, and a locking plate, two syndesmosis screws. ESTIMATED BLOOD LOSS: Less than 30 mL. TOURNIQUET TIME: 40 minutes at 300 pounds of pressure. DESCRIPTION OF PROCEDURE: The patient was brought to the operating room, put to sleep with general LMA anesthesia. Once asleep, the patient had the right leg sterilely prepped and draped. A timeout was performed confirming this as the operative site by initials, consent form, and x-rays. Once this had been done, and we placed Coban around the foot to isolate the toes from the operative field, we made a lateral incision over the fibula. This was dissected down to bone and identified the fracture that was comminuted about 2 cm above the articular surface. This is a type 3 fracture that was reduced, pulling traction and using the lobster claw to hold this in position. We used anatomic titanium fibular plate laterally. Once reduced, we placed one screw distal and one proximal to hold the reduction. We took images to confirm the reduction with AP and lateral images. We had closed down the medial mortise. We then placed additional screws lateral, four screws additionally distal and three additional screws proximal. We then placed two syndesmosis screws, which were 2 cm above the articular cartilage. This measured 42 mm and a 40 mm fully-threaded nonlocking screw. We kept the ankle at 90 degrees to prevent over-reduction and over-tensioning. Once this was done and we took images to confirm the reduction with AP and lateral, this showed anatomic reduction of the medial mortise and of the fracture site. The skin was closed with 2-0 Vicryl and 3-0 Monocryl. Sterile bandage was applied. She was placed back into the walking boot. Tourniquet was deflated 40 minutes. The patient tolerated this well. There was no complication. [facility] 04/28/2022 RBRut:jaime Job ID: [id number] Doc ID: [id number] Speedy Polk MD
--- NOTE | 2022-04-20 08:56 | Discharge Summary ---
Discharge Provider Provider IMPORTANT FOLLOW-UP INFORMATION FOR PCP: Patient information: Note initiated : 04/20/22 at 8:52 am Patient: Gayle Gomez 61 y/o F admitted on 04/18/22 for suspects rt lowr leg Fx. Date of admission: 04/18/22 22:48 Discharge date: 04/20/22 Primary care physician: Yaritza Garcia Admitting clinician: Trung Morris Attending physician on admission: Trung Morris Consults: 04/18/22 Consult to Physician [CONS] Stat Comment: Consulting Provider: Speedy Polk Reason For Exam: Physician to Consult Consult to Physician [CONS] Stat Comment: Consulting Provider: Trung Morris Reason For Exam: Physician to Consult Attending physician on discharge: Trung Morris Discharging clinician: Trung Morris COURSE Hospital Course Hospital course: 61 years old pleasant female with diabetes, hypertension, hyperlipidemia, no known history of heart disease and morbid obesity with BMI 50 admitted with following problem list: #Acute traumatic right ankle/fibula fracture. Displaced and unstable -S/p Right ankle ORIF with syndesmosis screws 04/19/22 by . -Pain control. Ambulation per Ortho. Please see Ortho note # DM II -Resume home oral meds # Elevated Lactic Acid. - No Sepsis. # HTN -Continue home Atenolol # HLP - Cont home Statin #Restless leg syndrome - Cont home Mirapex #Morbid obesity with BMI 50 -Patient needs weight reduction program. Discussed with primary care physician DVT prophylaxis: Given patient's morbid obesity and poor functional status I will start aspirin 325 mg twice daily X 10 days and to be reevaluated by PCP after. Take aspirin with male. Continue your omeprazole. If you see any signs or symptoms of bleeding including black stool please stop aspirin and call your primary care physician Disposition: Patient discharged home Condition on discharge: Hemodynamically stable. Tolerated p.o. Discharge activity: See Dr. Strickland's note Discharge diet: Diabetic, cardiac Discharge medication: See med reconciliation form Discharge follow-up: Primary care physician within 1 week for post hospital follow-up. Dr. Strickland orthopedic surgeon as directed Discharge diagnosis: See above Secondary discharge diagnosis: Diabetes, hypertension, hypothyroidism, restless leg syndrome, morbid obesity with BMI 53 Procedures: ORIF right ankle by Dr. Strickland Complications: None Time Spent with Patient Time attestation: Total time spent providing and/or coordinating discharge services: Time spent: Less than 30 minutes EXAM Constitutional Vitals: Temp Pulse Resp BP Pulse Ox O2 Del Method O2 Flow Rate 98.2 F 66 18 120/65 100 3 04/20/22 08:28 04/20/22 08:24 04/20/22 08:24 04/20/22 08:24 04/20/22 08:24 04/20/22 08:24 04/19/22 23:23 Exam: general: Awake alert oriented x3. No distress. Talking on the phone HEENT: PERRLA, moist mucous membrane. Anicteric sclera Lungs: Clear to auscultation bilaterally. No crackles rhonchi or rales. Cardiovascular: Regular rate and rhythm. S1 + S2, no murmur gallop rub. No JVD GI: Abdomen soft, nontender, positive bowel sounds. No hepatosplenomegaly. No rebound tenderness. No CVA tenderness Extremities: Status post ORIF right ankle. In cast. 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 Cranial nerves II through XII 12 grossly intact. Psychiatric: Normal mood and affect Discharge Data Data Completed and Pending Labs on day of discharge: Labs from last 24 hours 04/19/22 04/19/22 19:37 19:37 WBC 9.1 RBC 4.50 Hgb 12.4 Hct 40.7 MCV 90.4 MCH 27.6 MCHC 30.5 L RDW 14.8 H Plt Count 217 MPV 10.2 Immature Gran % (Auto) 0.4 Neut % (Auto) 90.5 H Lymph % (Auto) 7.7 L [place] % (Auto) 1.3 Eos % (Auto) 0 Baso % (Auto) 0.1 Lymph # (Auto) 0.70 L [place] # (Auto) 0.12 Eos # (Auto) 0 Baso # (Auto) 0.01 Immature Gran # 0.04 Absolute Neutrophils 8.19 H VBG Lactic Acid 1.3 Discharge Plan Patient/Caregiver Discharge Instructions Activity: ambulate only with your walker and non-weight bearing Diet: Regular Diet Instructions: Hydrocodone/Acetaminophen (By mouth), Ankle Fracture (DC) Activity Restrictions/Additional Instructions: Resume home diet as tolerated. Non-weight bearing operative side. Activity as tolerated. Use your ice packs as tolerated throughout the day. The icing of your ankle, use of KONG wrap, and elevation will help with pain and swelling. Keep dressing clean and dry. Leave dressing in place until seen by physician. You may start showering on Wednesday, 04/21. Do not scrub dressing. Do not use soaps, creams, or lotions over the dressing. If the dressing becomes saturated with blood or body fluids or comes off, remove it and apply dry gauze and tape. Change daily. No bathing or soaking in hot tub until released by surgeon. Take your prescriptions to mushroom picker equipment or medications. Your prescriptions are with your discharge information. To avoid constipation while taking any narcotic pain medication, take an over the counter stool softener/laxative. If you have any questions or concerns, call your orthopedic surgeon before going to the emergency room. [facility] has an on-call physician 24 hours per day/7 days per week and can be reached at [phone]. Call for fevers above 100.5 or pain not controlled by medication. This discharge packet is provided to you to help keep you informed about your care. We want to ensure you get everything you need when you go home. You will also be receiving a call from us in a few days to follow up with you and see how you are doing since your discharge. This gives us a chance to listen to any concerns you maybe experiencing since you were discharged or any additional needs you may have, as well as providing us feedback on your care experience. We strive to always provide excellent care and thank you for your feedback and for choosing [facility]. Prescriptions: New hydrocodone-acetaminophen 10-325 mg Tablet 1 - 2 tab PO Q4HP PRN (Reason: Per Pain Protocol) Qty: 40 0RF No Action albuterol sulfate [ProAir HFA] 90 mcg/actuation HFA aerosol inhaler 2 puff INHALATION Q6H PRN (Reason: cough, shortness of breath, wheezing) Qty: 8.5 5RF Rx Instructions: administer with spacer omeprazole 20 mg capsule,delayed release(DR/EC) 40 mg PO QDAY Qty: 180 5RF atenolol 50 mg tablet 50 mg PO BID Qty: 180 4RF atorvastatin 40 mg tablet 1 tab PO QDAY venlafaxine 75 mg tablet 1 tab PO BID ropinirole 3 mg tablet 3 mg PO BID Rx Instructions: 1 tab in AM and 2 tab QHS valsartan 80 mg tablet 1 tab PO QDAY ergocalciferol (vitamin D2) 1,250 mcg (50,000 unit) Capsule 1,250 mcg PO WEEKLY Other Ambulatory Orders: [place] (ONCE) Location: None Selected Ordered By: Speedy Polk Follow Up Plan Follow up with: Yaritza Garcia MD [Primary Care Provider] - Speedy Polk MD [Physician] - Patient Disposition: Home, Self-Care Prognosis: Good Rehab Potential: Good I certify that the patient requires SNF services: No Discharge Orders: Discharge Order (Routine); Ordered 04/19/22 Ordered By: Speedy Polk
[2022-04-20] MEDS ORDERED: ENOXAPARIN 40 MG/0.4 ML SYRINGE SQ SCH (09:00)
[2022-04-20] MEDS ORDERED: VALSARTAN 80 MG PO SCH (09:00)
[2022-04-20] MEDS ORDERED: LOSARTAN 50 MG TABLET PO SCH (09:00)
[2022-04-20] MEDS ORDERED: ATORVASTATIN 40 MG TABLET PO SCH (09:00)
[2022-04-20] MEDS: FLUTICASONE PROPIONATE SPRAY.NAS NS SCH (09:04)
[2022-04-20] MEDS: LACTATED RINGERS 1,000 ML IV SCH (09:06)
--- NOTE | 2022-04-20 12:10 | EKG ---
[facility] Test Date: 2022-04-18 Pat Name: Gayle Gomez Department: ED Room: Gender: Female Trust Manager Assistant: XOCHILT : 1960 Requested By: Trung Morris Order Number: [id number] Reading MD: Trino Diop M.D. Measurements Intervals Irma Rate: 67 P: 42 MA: 170 QRS: 33 QRSD: 86 T: -2 QT: 410 QTc: 432 Interpretive Statements Sinus rhythm Borderline T wave abnormalities Electronically Signed On 04-20-2022 12:10:03 PST by Trino Diop M.D. /[email or web address]/[email or web address]/[id number]
[2022-04-25] MEDS ORDERED: ERGOCALCIFEROL (VITAMIN D2) 50,000 UNIT CAPSULE PO SCH (09:00)
== END 2022-04-20 10:50 | disposition home or self-care (01) ==
LOC: MEDSUR 19:34 → ED 19:34 → MEDSUR 22:55
PROVIDERS: ADMIT Internal Medicine; ATTEND Internal Medicine